=== PATIENT | female | born 2000 | race African-American/Black ===

== ENCOUNTER 2018-02-03 14:06 | Emergency (ER) | payer SELFPAY ==
[2018-02-03] MEDS ORDERED: NORMAL SALINE 1000 ML 1,000 ML IV ONE ×2 (14:59→17:11)
--- NOTE | 2018-02-03 14:59 | ER Document Report ---
ED Medical Screen (RME) - General Chief Complaint: Nausea Stated Complaint: NAUSEA Time Seen by Provider: 02/03/18 14:53 Mode of Arrival: Ambulatory Information source: Patient Notes: 17-year-old female 0, presents to the emergency room with nausea, decreased p.o. intake, weakness in the setting of vaginal bleeding for the past 13 days. The patient is not currently followed by primary care doctor, she is new to the area (from [place]). She is on no medicines and has no allergies. TRAVEL OUTSIDE OF THE [place] IN LAST 30 DAYS: No - Related Data Allergies/Adverse Reactions: No Known Allergies Allergy (Verified 02/03/18 14:07) Past Medical History - Social History Chew tobacco use (# tins/day): No Frequency of alcohol use: None Drug Abuse: None Renal/ Medical History: Denies: Hx Peritoneal Dialysis Physical Exam - Vital signs Vitals: Temp Pulse Resp BP Pulse Ox 98.1 F 99 H 20 123/72 99 02/03/18 14:17 02/03/18 14:17 02/03/18 14:17 02/03/18 14:17 02/03/18 14:17 Course - Vital Signs Vital signs: Temp Pulse Resp BP Pulse Ox 98.1 F 99 H 20 123/72 99 02/03/18 14:17 02/03/18 14:17 02/03/18 14:17 02/03/18 14:17 02/03/18 14:17
[2018-02-03 15:34] LABS: ABSOLUTE LYMPHOCYTES (AUTO) 1.1 10^3/uL (0.5-4.7); ABSOLUTE MONOCYTES (AUTO) 0.2 10^3/uL (0.1-1.4); ABSOLUTE NEUT (AUTO) 5.2 10^3/uL (1.7-8.2); BASOPHILS % (AUTO) 0.4 % (0-2); EOSINOPHILS % (AUTO) 0.2 % (0-6); HEMOGLOBIN 11.5 g/dL (12.0-15.5); LYMPHOCYTES % (AUTO) 17.1 % (13-45); MEAN CORPUSCULAR HEMOGLOBIN 24.5 pg (27.0-33.4); MEAN CORPUSCULAR HGB CONC 32.1 g/dL (32.0-36.0); MEAN CORPUSCULAR VOLUME 76 fl (80-97); MONOCYTES % (AUTO) 3.5 % (3-13); PLATELET COUNT 206 10^3/uL (150-450); RED BLOOD COUNT 4.71 10^6/uL (3.72-5.28); RED CELL DISTRIBUTION WIDTH 15.1 % (11.5-14.0); SEGMENTED NEUTROPHILS % (AUTO) 78.8 % (42-78); TOTAL CELLS COUNTED % (AUTO) 100 %; WHITE BLOOD COUNT 6.6 10^3/uL (4.0-10.5)
[2018-02-03 15:54] LABS: ALANINE AMINOTRANSFERASE 13 U/L (5-35); ALKALINE PHOSPHATASE 64 U/L (50-135); ANION GAP 7 (5-19); ASPARTATE AMINO TRANSFERASE 22 U/L (5-30); BILIRUBIN,DIRECT 0.2 mg/dL (0.0-0.4); BILIRUBIN,TOTAL 0.5 mg/dL (0.2-1.3); BLOOD UREA NITROGEN 12 mg/dL (7-20); CALCIUM 9.4 mg/dL (8.4-10.2); CARBON DIOXIDE 28 mmol/L (22-30); CHLORIDE 105 mmol/L (98-107); GLUCOSE 139 mg/dL (75-110); POTASSIUM 4.3 mmol/L (3.6-5.0); SODIUM 140.3 mmol/L (137-145); TOTAL PROTEIN 7.9 g/dL (6.3-8.2)
--- NOTE | 2018-02-03 16:44 | ER Document Report ---
ED GI/ - General Chief Complaint: Nausea Stated Complaint: NAUSEA Time Seen by Provider: 02/03/18 14:53 Mode of Arrival: Ambulatory Notes: Patient is an otherwise healthy 17-year-old female who presents with chief complaint of nausea without vomiting. Patient also is concerned because her period has lasted 19 days it is usually normal. Patient has no other complaints today. Patient has no past medical history or surgical history. TRAVEL OUTSIDE OF THE [place] IN LAST 30 DAYS: No - Related Data Allergies/Adverse Reactions: No Known Allergies Allergy (Verified 02/03/18 14:07) Past Medical History - General Information source: Patient - Social History Smoking Status: Current Every Day Smoker Chew tobacco use (# tins/day): No Frequency of alcohol use: None Drug Abuse: None Family History: Reviewed & Not Pertinent Patient has suicidal ideation: No Patient has homicidal ideation: No - Medical History Medical History: Negative Renal/ Medical History: Denies: Hx Peritoneal Dialysis Surgical Hx: Negative Review of Systems - Review of Systems Gastrointestinal: Nausea Female Genitourinary: Vaginal bleeding Physical Exam - Vital signs Vitals: Temp Pulse Resp BP Pulse Ox 98.1 F 99 H 20 123/72 99 02/03/18 14:17 02/03/18 14:17 02/03/18 14:17 02/03/18 14:17 02/03/18 14:17 - Notes Notes: PHYSICAL EXAMINATION: GENERAL: Well-appearing, well-nourished and in no acute distress. HEAD: Atraumatic, normocephalic. EYES: Pupils equal round and reactive to light, extraocular movements intact, conjunctiva are normal. ENT: Nares patent, oropharynx clear without exudates. Moist mucous membranes. NECK: Normal range of motion, supple without lymphadenopathy LUNGS: Breath sounds clear to auscultation bilaterally and equal. No wheezes rales or rhonchi. HEART: Regular rate and rhythm without murmurs ABDOMEN: Soft, nontender, nondistended abdomen. No guarding, no rebound. No masses appreciated. Female : No CVA tenderness. Musculoskeletal: Normal range of motion, no pitting or edema. No cyanosis. NEUROLOGICAL: Cranial nerves grossly intact. Normal speech, normal gait. Normal sensory, motor exams PSYCH: Normal mood, normal affect. SKIN: Warm, Dry, normal turgor, no rashes or lesions noted. Course - Re-evaluation Re-evalutation: Hemoglobin and hematocrit are within normal limits. Patient reports she is soaking through 1 pad every 4-6 hours. Patient will be given prescription antiemetics and will be discharged home in stable condition as patient's vital signs are stable and patient has not vomited while in the emergency department for the last several hours. - Vital Signs Vital signs: Temp Pulse Resp BP Pulse Ox 98.1 F 75 16 116/65 99 02/03/18 14:17 02/03/18 18:09 02/03/18 18:09 02/03/18 18:09 02/03/18 18:09 - Laboratory Result Diagrams: 02/03/18 15:18 02/03/18 15:18 Laboratory results interpreted by me: 02/03/18 02/03/18 02/03/18 15:18 15:18 16:59 Hgb 11.5 L MCV 76 L MCH 24.5 L RDW 15.1 H Seg Neutrophils % 78.8 H Glucose 139 H Urine Blood LARGE H Urine Urobilinogen 2.0 H Discharge - Discharge Clinical Impression: Nausea, Vaginal bleeding Condition: Stable Disposition: HOME, SELF-CARE Additional Instructions: NORMAL EXAM AND WORKUP: At this time, your examination and workup show no significant abnormality. No significant abnormal physical findings were noted. All laboratory studies that were ordered show no significant abnormality. Although your examination and all studies that were ordered showed no significant abnormal finding, there are no examinations and no studies that are 100% accurate. There is always the possibility that some abnormality could exist and not be detected with physical examination or within the limits and capabilities of laboratory and other studies. You should return or follow up as you were instructed on your visit today for further evaluation if your symptoms do not resolve. Vaginal Bleeding You are having an episode of abnormal bleeding. Causes of abnormal vaginal bleeding can include miscarriage or tubal , tumors such as cancer or benign fibroids, medication effects, or hormone imbalance. Testing can eliminate unsuspected , tumors, or infection as a cause. "Dysfunctional uterine bleeding" is due to hormone imbalance, and is especially common at times when the normal cycle is disturbed -- whether by recent , use of control pills or hormones, or impending menopause. If the bleeding is innocent, most commonly a short course of hormones is given to restore the uterus to normal. Sometimes, the normal menstrual cycle corrects itself naturally. Sometimes , brief hormone therapy, or even a D&C is required. Your physician will advise you. Treatment for anemia may be required if bleeding is severe. You should rest and avoid intercourse until the bleeding is controlled. Call the doctor or return for re-examination if you feel faint, have increasing pain, or have a major increase in the amount of bleeding. Please take the Zofran as needed for nausea. Your workup today was completely negative. Please follow-up with your HOME COORDINATOR if you continue to have vaginal bleeding. Return to the emergency department if you develop vaginal bleeding anywhere soaking through more than 1 pad per day. Prescriptions: Ondansetron [Zofran Odt 4 mg Tablet] 1 - 2 tab PO Q4H PRN #15 tab.rapdis PRN Reason: For Nausea/Vomiting
[2018-02-03 17:11] LABS: APPEARANCE,URINE SLIGHTLY-CLOUDY; BILIRUBIN,URINE NEGATIVE (NEGATIVE); COLOR,URINE YELLOW; GLUCOSE, URINE NEGATIVE (NEGATIVE); KETONES,URINE NEGATIVE (NEGATIVE); LEUKOCYTE ESTERASE,URINE NEGATIVE (NEGATIVE); NITRITE,URINE NEGATIVE (NEGATIVE); PROTEIN,URINE NEGATIVE (NEGATIVE); URINE SPECIFIC GRAVITY 1.025
[2018-02-03] MEDS ORDERED: ONDANSETRON HCL INJ/PF 4 MG/2 ML SDV IV ONE (17:11)
[2018-02-03 18:11] VITALS: BP 116/65
== END 2018-02-03 18:12 | disposition home or self-care (01) ==
LOC: ER 14:06
DX: R11.0 Nausea (principal); N89.8 Other specified noninflammatory disorders of vagina; F17.200 Nicotine dependence, unspecified, uncomplicated
CPT/HCPCS: 99283; 96361; 96374; 36415; 87086; 84702; 85025; 80053; 81001; J2405

== ENCOUNTER 2018-04-23 10:31 | Emergency (ER) | payer SELFPAY ==
[2018-04-23 12:19] LABS: ABSOLUTE LYMPHOCYTES (AUTO) 1.3 10^3/uL (0.5-4.7); ABSOLUTE MONOCYTES (AUTO) 0.2 10^3/uL (0.1-1.4); ABSOLUTE NEUT (AUTO) 2.6 10^3/uL (1.7-8.2); BASOPHILS % (AUTO) 0.5 % (0-2); HEMATOCRIT 31.1 % (36.0-47.0); HEMOGLOBIN 9.9 g/dL (12.0-15.5); LYMPHOCYTES % (AUTO) 31.1 % (13-45); MEAN CORPUSCULAR HEMOGLOBIN 23.7 pg (27.0-33.4); MEAN CORPUSCULAR HGB CONC 31.9 g/dL (32.0-36.0); MEAN CORPUSCULAR VOLUME 75 fl (80-97); PLATELET COUNT 183 10^3/uL (150-450); RED BLOOD COUNT 4.17 10^6/uL (3.72-5.28); RED CELL DISTRIBUTION WIDTH 14.9 % (11.5-14.0); SEGMENTED NEUTROPHILS % (AUTO) 63.4 % (42-78); TOTAL CELLS COUNTED % (AUTO) 100 %; WHITE BLOOD COUNT 4.1 10^3/uL (4.0-10.5)
[2018-04-23 12:29] LABS: APPEARANCE,URINE CLOUDY; BILIRUBIN,URINE NEGATIVE (NEGATIVE); COLOR,URINE YELLOW; GLUCOSE, URINE NEGATIVE (NEGATIVE); KETONES,URINE NEGATIVE (NEGATIVE); LEUKOCYTE ESTERASE,URINE NEGATIVE (NEGATIVE); NITRITE,URINE NEGATIVE (NEGATIVE); PROTEIN,URINE 100 mg/dL (NEGATIVE); URINE SPECIFIC GRAVITY 1.028; UROBILINOGEN,URINE NEGATIVE mg/dL (<2.0)
[2018-04-23 12:33] LABS: ALANINE AMINOTRANSFERASE 19 U/L (5-35); ALBUMIN 3.8 g/dL (3.7-5.6); ALKALINE PHOSPHATASE 65 U/L (50-135); ANION GAP 10 (5-19); ASPARTATE AMINO TRANSFERASE 16 U/L (5-30); BILIRUBIN,DIRECT 0.4 mg/dL (0.0-0.4); BILIRUBIN,TOTAL 0.7 mg/dL (0.2-1.3); BLOOD UREA NITROGEN 11 mg/dL (7-20); CALCIUM 9.2 mg/dL (8.4-10.2); CARBON DIOXIDE 28 mmol/L (22-30); CHLORIDE 104 mmol/L (98-107); GLUCOSE 131 mg/dL (75-110); LIPASE 52.1 U/L (23-300); POTASSIUM 4.2 mmol/L (3.6-5.0); SODIUM 142.2 mmol/L (137-145); TOTAL PROTEIN 7.1 g/dL (6.3-8.2)
--- NOTE | 2018-04-23 13:18 | RADIOLOGY REPORT (SQ) ---
EXAM DESCRIPTION: U/S NON OB PEL W/DOPPLER COMPLETED DATE/TIME: 04/23/2018 1:02 pm REASON FOR STUDY: vaginal bleedings COMPARISON: None. TECHNIQUE: Dynamic and static grayscale images acquired of the pelvis via transabdominal and transva ginal approach and recorded on PACS. Additional selected color Doppler and spectral images recorded. LIMITATIONS: None. FINDINGS: UTERUS: Contour normal. No mass. ENDOMETRIAL STRIPE: Heterogeneous. Thickened at 1.8 cm. CERVIX: No nabothian cysts. RIGHT OVARY AND DOPPLER: Normal size. No worrisome masses. Normal arterial vascular flow without evid ence for torsion. LEFT OVARY AND DOPPLER: 2.9 cm cyst. Positive blood flow. FREE FLUID: None noted. OTHER: No other significant finding. MEASUREMENTS: UTERUS: 8.4 cm ENDOMETRIAL STRIPE: 1.8 cm RIGHT OVARY: 1.1 cm LEFT OVARY: 3.4 cm IMPRESSION: Heterogeneous thickened endometrium. 3 cm left ovarian cyst. COMMENT: Followup of asymptomatic benign ovarian cysts detected by ultrasound in PREMENOPAUSAL job ents Simple cyst: *? 5 cm: no followup *Note: If cyst is clinically symptomatic or otherwise concerning, other followup may be warranted. Based on recommendations of the Society for Radiologists in Ultrasound Consensus Conference Statement 2010 on management of asymptomatic ovarian and other adnexal cysts imaged at ultrasound. TECHNICAL DOCUMENTATION: JOB ID: [id number] [employer]- All Rights Reserved Rev-09/30 Reading location - IP/workstation name: [email or web address]
--- NOTE | 2018-04-23 13:36 | ER Document Report ---
ED General - General Chief Complaint: Vaginal Bleeding Stated Complaint: VAGINAL PAIN Time Seen by Provider: 04/23/18 11:32 TRAVEL OUTSIDE OF THE [place] IN LAST 30 DAYS: No - HPI Patient complains to provider of: Vaginal bleeding Notes: Patient coming in for evaluation of vaginal bleeding. Patient states is been ongoing since January. Patient states she has follow-up with [facility] GENETIC[facility] however has not followed up since that time and since coming to visit us here in the ER. Patient states bleeding continues therefore came to ER for further evaluation. Denies any weakness dizziness patient states she is going through approximately 1-2 pads a day. Patient denies any trauma unsure about her status at this time. Patient otherwise resting comfortably upon my evaluation. - Related Data Allergies/Adverse Reactions: No Known Allergies Allergy (Verified 02/03/18 14:07) Past Medical History - Social History Smoking Status: Never Smoker Frequency of alcohol use: None Drug Abuse: None Family History: Reviewed & Not Pertinent Patient has suicidal ideation: No Patient has homicidal ideation: No Renal/ Medical History: Denies: Hx Peritoneal Dialysis Review of Systems - Review of Systems Constitutional: No symptoms reported EENT: No symptoms reported Cardiovascular: No symptoms reported Respiratory: No symptoms reported Gastrointestinal: No symptoms reported Genitourinary: No symptoms reported Female Genitourinary: Vaginal bleeding Musculoskeletal: No symptoms reported Skin: No symptoms reported Hematologic/Lymphatic: No symptoms reported Neurological/Psychological: No symptoms reported -: Yes All other systems reviewed and negative Physical Exam - Vital signs Vitals: Temp Pulse Resp BP Pulse Ox 99.1 F 103 H 20 125/75 98 04/23/18 10:38 04/23/18 10:38 04/23/18 10:38 04/23/18 10:38 04/23/18 10:38 Interpretation: Normal - General General appearance: Appears well, Alert - HEENT Head: Normocephalic, Atraumatic Eyes: Normal Pupils: PERRL - Respiratory Respiratory status: No respiratory distress Chest status: Nontender Breath sounds: Normal Chest palpation: Normal - Cardiovascular Rhythm: Regular Heart sounds: Normal auscultation Murmur: No - Abdominal Inspection: Normal Distension: No distension Bowel sounds: Normal Tenderness: Nontender Organomegaly: No organomegaly - Back Back: Normal, Nontender - Extremities General upper extremity: Normal inspection, Nontender, Normal color, Normal ROM , Normal temperature General lower extremity: Normal inspection, Nontender, Normal color, Normal ROM , Normal temperature, Normal weight bearing. No: Yung's sign - Neurological Neuro grossly intact: Yes Cognition: Normal Orientation: AAOx4 Marilynn Coma Scale Eye Opening: Spontaneous Secor Coma Scale Verbal: Oriented Marilynn Coma Scale Motor: Obeys Commands Marilynn Coma Scale Total: 15 Speech: Normal Motor strength normal: LUE, RUE, LLE, RLE Sensory: Normal - Psychological Associated symptoms: Normal affect, Normal mood - Skin Skin Temperature: Warm Skin Moisture: Dry Skin Color: Normal Course - Re-evaluation Re-evalutation: 04/23/18 13:32 Ultrasound shows thickened endometrium. Laboratory studies showed anemia at this time 9.9 which is decreased and the patient hemoglobin from January 24 0.5. We will start the patient on iron supplements. CELL GENETICIST information was given to the patient. Patient stated understanding of the need for follow-up. Patient will be discharged home. - Vital Signs Vital signs: Temp Pulse Resp BP Pulse Ox 99.1 F 103 H 20 125/75 98 04/23/18 10:38 04/23/18 10:38 04/23/18 10:38 04/23/18 10:38 04/23/18 10:38 - Laboratory Result Diagrams: 04/23/18 12:00 04/23/18 12:00 Laboratory results interpreted by me: 04/23/18 04/23/18 04/23/18 11:45 12:00 12:00 Hgb 9.9 L Hct 31.1 L MCV 75 L MCH 23.7 L MCHC 31.9 L RDW 14.9 H Glucose 131 H Urine Protein 100 H Urine Blood LARGE H Discharge - Discharge Clinical Impression: Dysfunctional uterine bleeding Anemia Qualifiers: Anemia type: unspecified type Qualified Code(s): D64.9 - Anemia, unspecified Condition: Good Disposition: HOME, SELF-CARE Instructions: Dysfunctional Uterine Bleeding ([facility]), Anemia ([facility]), Ob-Contemporary Or [employer] Additional Instructions: Laboratory studies today show that you are becoming slightly anemic. I would recommend he be discharged on iron supplements at this time. Please be aware that this will change the color of her stools. Also recommend that she follow- up with [facility] GENETIC[facility]. Your ultrasound does not show any signs of fibroids with a showed signs of a thickened endometrium. Further evaluation will need to be performed by a CELL GENETICIST Prescriptions: 118/Iron/Folate 6/Dha [[facility] Softgel] 1 each PO DAILY #30 capsule Referrals: CROW KAPADIA MD [ACTIVE STAFF] - Follow up in 3-5 days
[2018-04-23 13:51] VITALS: BP 130/68
== END 2018-04-23 14:00 | disposition home or self-care (01) ==
LOC: ER 10:31
DX: N93.8 Other specified abnormal uterine and vaginal bleeding (principal); D64.9 Anemia, unspecified
CPT/HCPCS: 76856; 80053; 81001; 81025; 83690; 85025; 93976; 99284

== ENCOUNTER 2018-05-27 10:54 | Emergency (ER) | payer SELFPAY ==
[2018-05-27] MEDS ORDERED: ONDANSETRON 4 MG TAB.RAPDIS PO ONE (11:24)
--- NOTE | 2018-05-27 11:26 | ER Document Report ---
ED Medical Screen (RME) - General Chief Complaint: Vomiting Stated Complaint: THROWING UP Time Seen by Provider: 05/27/18 11:21 Notes: 17-year-old female patient whose LMP is 05/05/2018 who states there is a possibility she could be . She reports waking up this morning about 07 100 with nausea and vomiting, continues to remain nauseous. She did have some diarrhea this morning. She reports a similar episode that occurred once about 5 AM a week ago. There is no pain or fever associated with this. I have greeted and performed a rapid initial assessment of this patient. A comprehensive ED assessment and evaluation of the patient, analysis of test results and completion of the medical decision making process will be conducted by additional ED providers. TRAVEL OUTSIDE OF THE [place] IN LAST 30 DAYS: No - Related Data Allergies/Adverse Reactions: No Known Allergies Allergy (Verified 05/27/18 10:56) Past Medical History - Social History Chew tobacco use (# tins/day): No Frequency of alcohol use: None Drug Abuse: None Renal/ Medical History: Denies: Hx Peritoneal Dialysis Physical Exam - Vital signs Vitals: Temp Pulse Resp BP Pulse Ox 98.5 F 81 18 117/77 99 05/27/18 11:00 05/27/18 11:00 05/27/18 11:00 05/27/18 11:00 05/27/18 11:00 Course - Vital Signs Vital signs: Temp Pulse Resp BP Pulse Ox 98.5 F 81 18 117/77 99 05/27/18 11:00 05/27/18 11:00 05/27/18 11:00 05/27/18 11:00 05/27/18 11:00
[2018-05-27] MEDS ORDERED: KETOROLAC TROMETHAMINE 60 MG/2 ML SDV IM ONE (12:06)
--- NOTE | 2018-05-27 12:09 | ER Document Report ---
ED GI/ - General Chief Complaint: Vomiting Stated Complaint: THROWING UP Time Seen by Provider: 05/27/18 11:21 Mode of Arrival: Ambulatory Information source: Patient Notes: Chief complaint: abdominal pain: History of complain:( obtained from----patient) 17 years old female presents today with abdominal pain nausea and vomiting since this morning with 4 loose bowel movement which is described as brown in color. Denies any fever chills or other constitutional symptoms denies any dysuria frequency urgency Onset: As above Duration: Since this morning Severity: Moderate Quality: Crampy Context: Unknown Exacerbating factor and relieving factors: None REVIEW OF SYSTEMS: CONSTITUTIONAL : Denies fever, chills, or sweats. Denies recent illness. EENT: Denies eye, ear, throat, or mouth pain or symptoms. Denies nasal or sinus congestion or discharge. Denies throat, tongue, or mouth swelling or difficulty swallowing. CARDIOVASCULAR: Denies chest pain. Denies palpitations or racing or irregular heart beat. Denies ankle edema. RESPIRATORY: Denies cough, cold, or chest congestion. Denies shortness of breath, difficulty breathing, or wheezing. GASTROINTESTINAL: As per history of complain denies constipation. GENITOURINARY: Denies difficulty urinating, painful urination, burning, frequency, blood in urine, or discharge. FEMALE GENITOURINARY: Denies vaginal bleeding, heavy or abnormal periods, irregular periods. Denies vaginal discharge or odor. MUSCULOSKELETAL: Denies back or neck pain or stiffness. Denies joint pain or swelling. SKIN: Denies rash, lesions or sores. HEMATOLOGIC : Denies easy bruising or bleeding. LYMPHATIC: Denies swollen, enlarged glands. NEUROLOGICAL: Denies confusion or altered mental status. Denies passing out or loss of consciousness. Denies dizziness or lightheadedness. Denies headache. Denies weakness or paralysis or loss of use of either side. Denies problems with gait or speech. Denies sensory loss, numbness, or tingling. Denies seizures. PSYCHIATRIC: Denies anxiety or stress. Denies depression, suicidal ideation, or homicidal ideation. ALL OTHER SYSTEMS REVIEWED AND NEGATIVE. PHYSICAL EXAMINATION: GENERAL: Well-appearing, well-nourished and in no acute distress. Morbid obesity HEAD: Atraumatic, normocephalic. EYES: Pupils equal round and reactive to light, extraocular movements intact, conjunctiva are normal. ENT: Nares patent, oropharynx clear without exudates. Moist mucous membranes. NECK: Normal range of motion, supple without lymphadenopathy LUNGS: Breath sounds clear to auscultation bilaterally and equal. No wheezes rales or rhonchi. HEART: Regular rate and rhythm without murmurs ABDOMEN: Soft, nontender, nondistended abdomen. No guarding, no rebound. No masses appreciated. Female : deferred Musculoskeletal: Normal range of motion, no pitting or edema. No cyanosis. NEUROLOGICAL: Cranial nerves grossly intact. Normal speech, normal gait. Normal sensory, motor exams PSYCH: Normal mood, normal affect. SKIN: Warm, Dry, normal turgor, no rashes or lesions noted. Dictation was performed using [employer] voice recognition software TRAVEL OUTSIDE OF THE [place] IN LAST 30 DAYS: No - HPI Notes: 05/27/18 12:08 Dictated - Related Data Allergies/Adverse Reactions: No Known Allergies Allergy (Verified 05/27/18 11:25) Past Medical History - Social History Smoking Status: Never Smoker Chew tobacco use (# tins/day): No Frequency of alcohol use: None Drug Abuse: None Lives with: Family Family History: Reviewed & Not Pertinent Patient has suicidal ideation: No Patient has homicidal ideation: No Renal/ Medical History: Denies: Hx Peritoneal Dialysis Review of Systems - Review of Systems Notes: Dictated Physical Exam - Vital signs Vitals: Temp Pulse Resp BP Pulse Ox 98.5 F 81 18 117/77 99 05/27/18 11:00 05/27/18 11:00 05/27/18 11:00 05/27/18 11:00 05/27/18 11:00 - Notes Notes: Dictated Course - Vital Signs Vital signs: Temp Pulse Resp BP Pulse Ox 98.5 F 81 18 117/77 99 05/27/18 11:00 05/27/18 11:00 05/27/18 11:00 05/27/18 11:00 05/27/18 11:00 - Laboratory Result Diagrams: 05/27/18 11:35 05/27/18 11:35 Laboratory results interpreted by me: 05/27/18 11:35 Hgb 10.1 L Hct 32.1 L MCV 71 L MCH 22.4 L MCHC 31.5 L RDW 16.0 H Seg Neutrophils % 82.9 H Monocytes % 2.8 L - Diagnostic Test Radiology reviewed: Image reviewed - Abdominal view shows large amount of retained feces, Reports reviewed - Abdominal x-ray reported by radiologist as unremarkable Discharge - Discharge Clinical Impression: Nausea & vomiting Qualifiers: Vomiting type: unspecified Retained feces Qualifiers: Constipation type: slow transit constipation Qualified Code(s): K59.01 - Slow transit constipation Condition: Fair Instructions: Vomiting ([facility]), Constipation ([facility]) Prescriptions: Ondansetron [Zofran Odt 4 mg Tablet] 1 - 2 tab PO Q4HP PRN #10 tab.rapdis PRN Reason: Ketorolac Tromethamine [Toradol 10 mg Tablet] 10 mg PO Q6HP PRN #14 tablet PRN Reason: Dicyclomine HCl [Bentyl 10 mg Capsule] 1 cap PO TID #30 cap Lactulose [Cephulac Syrup 20 gm/30 ml Udcup] 20 gm PO BID #120 udc
[2018-05-27 12:16] LABS: ABSOLUTE MONOCYTES (AUTO) 0.2 10^3/uL (0.1-1.4); BASOPHILS % (AUTO) 0.4 % (0-2); EOSINOPHILS % (AUTO) 0.1 % (0-6); HEMATOCRIT 32.1 % (36.0-47.0); HEMOGLOBIN 10.1 g/dL (12.0-15.5); LYMPHOCYTES % (AUTO) 13.8 % (13-45); MEAN CORPUSCULAR HEMOGLOBIN 22.4 pg (27.0-33.4); MEAN CORPUSCULAR HGB CONC 31.5 g/dL (32.0-36.0); MEAN CORPUSCULAR VOLUME 71 fl (80-97); MONOCYTES % (AUTO) 2.8 % (3-13); PLATELET COUNT 242 10^3/uL (150-450); RED BLOOD COUNT 4.52 10^6/uL (3.72-5.28); SEGMENTED NEUTROPHILS % (AUTO) 82.9 % (42-78); TOTAL CELLS COUNTED % (AUTO) 100 %; WHITE BLOOD COUNT 7.3 10^3/uL (4.0-10.5)
[2018-05-27 12:20] LABS: APPEARANCE,URINE CLEAR; BILIRUBIN,URINE NEGATIVE (NEGATIVE); COLOR,URINE YELLOW; GLUCOSE, URINE NEGATIVE (NEGATIVE); KETONES,URINE NEGATIVE (NEGATIVE); LEUKOCYTE ESTERASE,URINE NEGATIVE (NEGATIVE); NITRITE,URINE NEGATIVE (NEGATIVE); PROTEIN,URINE NEGATIVE (NEGATIVE); URINE SPECIFIC GRAVITY 1.019; UROBILINOGEN,URINE NEGATIVE mg/dL (<2.0)
[2018-05-27 12:32] LABS: ALANINE AMINOTRANSFERASE 20 U/L (5-35); ALBUMIN 4.5 g/dL (3.7-5.6); ALKALINE PHOSPHATASE 79 U/L (50-135); ANION GAP 10 (5-19); ASPARTATE AMINO TRANSFERASE 20 U/L (5-30); BILIRUBIN,DIRECT 0.1 mg/dL (0.0-0.4); BILIRUBIN,TOTAL 0.3 mg/dL (0.2-1.3); BLOOD UREA NITROGEN 12 mg/dL (7-20); CALCIUM 9.6 mg/dL (8.4-10.2); CARBON DIOXIDE 25 mmol/L (22-30); CHLORIDE 106 mmol/L (98-107); GLUCOSE 108 mg/dL (75-110); POTASSIUM 4.9 mmol/L (3.6-5.0); SODIUM 140.7 mmol/L (137-145); TOTAL PROTEIN 7.8 g/dL (6.3-8.2)
--- NOTE | 2018-05-27 12:54 | RADIOLOGY REPORT (SQ) ---
EXAM DESCRIPTION: KUB/ABDOMEN (SINGLE VIEW) COMPLETED DATE/TIME: 05/27/2018 12:46 pm REASON FOR STUDY: Abdominal pain COMPARISON: None. NUMBER OF VIEWS: One view. TECHNIQUE: Supine radiographic image of the abdomen acquired. LIMITATIONS: None. FINDINGS: BOWEL GAS PATTERN: Normal bowel gas pattern. No dilated loops. CALCIFICATIONS: No suspicious calcifications. SOFT TISSUES: No gross mass or suggestion of organomegaly. HARDWARE: None in the abdomen. BONES: No acute fracture. No worrisome bone lesions. OTHER: No other significant finding. IMPRESSION: NO RADIOGRAPHIC EVIDENCE FOR ACUTE ABDOMINAL DISEASE. TECHNICAL DOCUMENTATION: JOB ID: [id number] [employer]- All Rights Reserved Reading location - IP/workstation name: [email or web address]
[2018-05-27 14:27] VITALS: BP 122/78
== END 2018-05-27 14:15 | disposition home or self-care (01) ==
LOC: ER 10:54
DX: K59.01 Slow transit constipation (principal); R11.2 Nausea with vomiting, unspecified; R10.9 Unspecified abdominal pain; R19.7 Diarrhea, unspecified
CPT/HCPCS: 99284; 96372; 36415; 84703; 85025; 80053; 81001; 74018; J1885; S0119

== ENCOUNTER 2018-08-08 17:02 | Emergency (ER) | payer MEDICAID ==
--- NOTE | 2018-08-08 19:05 | ER Document Report ---
ED General - General Chief Complaint: Vaginal Bleeding Stated Complaint: VAGINAL SPOTTING Time Seen by Provider: 08/08/18 17:58 Primary Care Provider: [facility] [Provider Group] - Follow up tomorrow Notes: 18-year-old female LMP either 05/01/2018 or 05/07/2018 presents to the emergency department for spotting and cramping times 24 hours. She states that it is in her lower abdomen and when she wiped after urinating she noticed some blood on the toilet paper. She did not see it on her underwear. She did not see any clots. She describes it as feeling acute cramping/constipation combination type pain. She denies any fevers or chills, shortness of breath or chest pain, does have morning nausea but none currently, no vomiting, no diarrhea. Denies urinary symptoms. She has no other complaints. She did have a transvaginal ultrasound performed here about 3 weeks ago that showed an intrauterine . She does have obstetrics care at [facility]. TRAVEL OUTSIDE OF THE [place] IN LAST 30 DAYS: No - Related Data Allergies/Adverse Reactions: No Known Allergies Allergy (Verified 05/27/18 11:25) Past Medical History - Social History Smoking Status: Never Smoker Family History: Reviewed & Not Pertinent Renal/ Medical History: Denies: Hx Peritoneal Dialysis Review of Systems - Review of Systems Constitutional: See HPI EENT: No symptoms reported Cardiovascular: See HPI Respiratory: See HPI Gastrointestinal: See HPI Genitourinary: See HPI Female Genitourinary: See HPI Musculoskeletal: No symptoms reported Skin: No symptoms reported Hematologic/Lymphatic: No symptoms reported Neurological/Psychological: No symptoms reported Physical Exam - Vital signs Vitals: Temp Pulse Resp BP Pulse Ox 98.2 F 89 18 148/75 H 99 08/08/18 17:07 08/08/18 17:07 08/08/18 17:07 08/08/18 17:07 08/08/18 17:07 - Notes Notes: PHYSICAL EXAMINATION: Reviewed vital signs and charting by RN GENERAL: Alert, interacts well. No acute distress. HEAD: Normocephalic, atraumatic. LUNGS: Clear to auscultation bilaterally, no wheezes, rales, or rhonchi. No respiratory distress. HEART: Regular rate and rhythm. No murmur ABDOMEN: soft, non-tender. Non-distended. Bowel sounds present in all 4 quadrants. no McBurney's point tenderness, no Keenan sign. EXTREMITIES: Moves all 4 extremities spontaneously. No edema, No cyanosis. PSYCH: Normal affect, normal mood. SKIN: Warm, dry, normal turgor. No rashes or lesions noted. Course - Re-evaluation Re-evalutation: 08/08/18 19:05 Overall well-appearing, basic blood work, urinalysis, transvaginal ultrasound ordered. Has a follow-up appointment on 08/15/2018. Pending workup will make recommendation for follow-up. 08/08/18 21:38 Ultrasound done and it shows a intrauterine , no heart tones seen. All lab work grossly normal. There is a small subchorionic bleed. I discussed this with patient and instructing her to follow-up tomorrow with [facility]. She is stable for discharge. Vital signs are stable - Vital Signs Vital signs: Temp Pulse Resp BP Pulse Ox 98.2 F 89 18 148/75 H 99 08/08/18 17:07 08/08/18 17:07 08/08/18 17:07 08/08/18 17:07 08/08/18 17:07 - Laboratory Result Diagrams: 08/08/18 19:05 08/08/18 19:05 Laboratory results interpreted by me: 08/08/18 08/08/18 08/08/18 19:05 19:05 19:07 Hgb 10.8 L Hct 33.6 L MCV 70 L MCH 22.4 L RDW 19.9 H Beta HCG, Quant 4136.70 H Urine Protein 30 H Urine Blood LARGE H Urine Urobilinogen 2.0 H Ur Leukocyte Esterase TRACE H Discharge - Discharge Clinical Impression: Vaginal bleeding affecting early Condition: Good Disposition: HOME, SELF-CARE Additional Instructions: Your ultrasound today shows a gestational sac in the uterus. They did not see a heart tone but again it is possible it could be too early. Please follow- up with [facility] tomorrow. Please return to the emergency department if you develop severe abdominal pain, bleeding that goes through more than 2 pads for more than 2 hours, pass out, or have any other symptoms that are concerning to you. Referrals: [facility] [Provider Group] - Follow up tomorrow
[2018-08-08 19:21] LABS: ABSOLUTE MONOCYTES (AUTO) 0.4 10^3/uL (0.1-1.4); ABSOLUTE NEUT (AUTO) 4.5 10^3/uL (1.7-8.2); BASOPHILS % (AUTO) 0.3 % (0-2); EOSINOPHILS % (AUTO) 0.4 % (0-6); HEMATOCRIT 33.6 % (36.0-47.0); HEMOGLOBIN 10.8 g/dL (12.0-15.5); LYMPHOCYTES % (AUTO) 28.7 % (13-45); MEAN CORPUSCULAR HEMOGLOBIN 22.4 pg (27.0-33.4); MEAN CORPUSCULAR VOLUME 70 fl (80-97); MONOCYTES % (AUTO) 5.3 % (3-13); PLATELET COUNT 236 10^3/uL (150-450); RED BLOOD COUNT 4.79 10^6/uL (3.72-5.28); RED CELL DISTRIBUTION WIDTH 19.9 % (11.5-14.0); SEGMENTED NEUTROPHILS % (AUTO) 65.3 % (42-78); TOTAL CELLS COUNTED % (AUTO) 100 %; WHITE BLOOD COUNT 6.8 10^3/uL (4.0-10.5)
[2018-08-08 19:25] LABS: APPEARANCE,URINE SLIGHTLY-CLOUDY; BILIRUBIN,URINE NEGATIVE (NEGATIVE); COLOR,URINE YELLOW; GLUCOSE, URINE NEGATIVE (NEGATIVE); KETONES,URINE NEGATIVE (NEGATIVE); LEUKOCYTE ESTERASE,URINE TRACE (NEGATIVE); NITRITE,URINE NEGATIVE (NEGATIVE); PROTEIN,URINE 30 mg/dL (NEGATIVE); URINE SPECIFIC GRAVITY 1.025
[2018-08-08 19:42] LABS: ALANINE AMINOTRANSFERASE 17 U/L (9-52); ALKALINE PHOSPHATASE 63 U/L (38-126); ANION GAP 10 (5-19); ASPARTATE AMINO TRANSFERASE 16 U/L (14-36); BILIRUBIN,DIRECT 0.2 mg/dL (0.0-0.4); BILIRUBIN,TOTAL 0.5 mg/dL (0.2-1.3); BLOOD UREA NITROGEN 12 mg/dL (7-20); CALCIUM 9.6 mg/dL (8.4-10.2); CARBON DIOXIDE 24 mmol/L (22-30); CHLORIDE 103 mmol/L (98-107); GLUCOSE 101 mg/dL (75-110); POTASSIUM 4.2 mmol/L (3.6-5.0); SODIUM 137.1 mmol/L (137-145); TOTAL PROTEIN 7.5 g/dL (6.3-8.2)
--- NOTE | 2018-08-08 21:22 | RADIOLOGY REPORT (SQ) ---
US PELVIS EXAM DATE: 08/08/2018 19:01 HISTORY: Early . Pelvic pain. COMPARISON: 07/13/2018 TECHNIQUE: Grayscale, color Doppler, and spectral Doppler ultrasound images of the pelvis were obtained. FINDINGS: There is an intrauterine gestational sac with a pole with crown-rump length of 1.2 cm corresponding to 7 weeks 2 days of . No yolk sac is seen. No heart rate is detected at this time. The right ovary is not seen. The left ovary measures 3 cm and contains normal color Doppler blood flow. There is a possible 1.4 cm subchorionic bleed adjacent to the gestational sac. IMPRESSION: Single IUP with gestational age 7 weeks 2 days. No heart rate could be elicited which may represent a live versus demise. Recommend short-term follow-up imaging
[2018-08-08 21:41] VITALS: BP 127/65
== END 2018-08-08 22:03 | disposition home or self-care (01) ==
LOC: ER 17:02
DX: O20.9 Hemorrhage in early pregnancy, unspecified (principal)
CPT/HCPCS: 36415; 76817; 80053; 81001; 84702; 85025; 93976; 99284

== ENCOUNTER 2018-12-24 13:59 | Emergency (ER) | payer MEDICAID ==
[2018-12-24 14:10] VITALS: BP 143/59
[2018-12-24] MEDS ORDERED: LORATADINE 10 MG TABLET PO ONE (14:49)
[2018-12-24] MEDS ORDERED: ACETAMINOPHEN 325 MG TABLET PO ONE (14:49)
--- NOTE | 2018-12-24 14:56 | ER Document Report ---
ED ENT - General Chief Complaint: Nasal Congestion Stated Complaint: BODYACHES Time Seen by Provider: 12/24/18 14:43 Mode of Arrival: Ambulatory Information source: Patient Notes: 18-year-old female presents to ED for complaint of body body aches nasal drainage body aches no fever. She states today is a secondary symptoms. 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 Patient is alert oriented respirations regular and unlabored speaking in full sentences. She states this is her second that she had one miscarriage no live . TRAVEL OUTSIDE OF THE [place] IN LAST 30 DAYS: No - HPI Patient complains to provider of: Nose problem, Other Onset: Yesterday - Cough and cold symptoms Onset/Duration: Gradual Quality of pain: Achy Severity: Mild Pain Level: 1 Location of pain: Sinus Associated symptoms: Congestion, Cough, Runny nose, Sinus drainage, Other - Body aches Similar symptoms previously: Yes Recently seen / treated by doctor: No - Related Data Allergies/Adverse Reactions: No Known Allergies Allergy (Verified 05/27/18 11:25) Past Medical History - General Information source: Patient - Social History Smoking Status: Current Every Day Smoker Cigarette use (# per day): Yes - 2 cigarettes a day Smoking Education Provided: Yes - 4 minutes Frequency of alcohol use: None Drug Abuse: None Lives with: Family Family History: Reviewed & Not Pertinent Patient has suicidal ideation: No Patient has homicidal ideation: No - Past Medical History Cardiac Medical History: Reports: None Pulmonary Medical History: Reports: None EENT Medical History: Reports: None Neurological Medical History: Reports: None Endocrine Medical History: Reports: None Renal/ Medical History: Reports: None Malignancy Medical History: Reports: None GI Medical History: Reports: None Musculoskeletal Medical History: Reports None Skin Medical History: Reports None Psychiatric Medical History: Reports: None Traumatic Medical History: Reports: None Infectious Medical History: Reports: None Surgical Hx: Negative Past Surgical History: Reports: None - Immunizations Immunizations up to date: Yes Review of Systems - Review of Systems Constitutional: Chills, Recent illness EENT: Nose discharge, Sinus discharge Cardiovascular: No symptoms reported Respiratory: No symptoms reported Gastrointestinal: No symptoms reported Genitourinary: No symptoms reported Female Genitourinary: No symptoms reported Musculoskeletal: Muscle pain - Body aches, Muscle stiffness Skin: No symptoms reported Hematologic/Lymphatic: No symptoms reported Neurological/Psychological: No symptoms reported -: Yes All other systems reviewed and negative Physical Exam - Vital signs Vitals: Temp Pulse Resp BP Pulse Ox 98.8 F 89 18 143/59 H 95 12/24/18 14:10 12/24/18 14:10 12/24/18 14:10 12/24/18 14:10 12/24/18 14:10 Interpretation: Normal - General General appearance: Appears well, Alert - HEENT Head: Normocephalic, Atraumatic Eyes: Normal Pupils: PERRL Ears: Normal External canal: Normal Tympanic membrane: Normal Sinus: Normal Nasal: Purulent discharge, Swelling - Or on the right nasal turbinate in the left Mouth/Lips: Normal Pharynx: Post nasal drainage. No: Erythema, Exudate, Peritonsillar abscess, Retropharyngeal abscess, Tonsillar hypertrophy, Potential airway comprom. - Respiratory Respiratory status: No respiratory distress Chest status: Nontender Breath sounds: Normal Chest palpation: Normal - Cardiovascular Rhythm: Regular Heart sounds: Normal auscultation Murmur: No - Abdominal Inspection: Normal Distension: No distension Bowel sounds: Normal Tenderness: Nontender Organomegaly: No organomegaly - Back Back: Normal, Nontender - Extremities General upper extremity: Normal inspection, Nontender, Normal color, Normal ROM, Normal temperature General lower extremity: Normal inspection, Nontender, Normal color, Normal ROM, Normal temperature, Normal weight bearing. No: Yung's sign - Neurological Neuro grossly intact: Yes Cognition: Normal Orientation: AAOx4 [place] Coma Scale Eye Opening: Spontaneous Marilynn Coma Scale Verbal: Oriented [place] Coma Scale Motor: Obeys Commands Marilynn Coma Scale Total: 15 Speech: Normal Motor strength normal: LUE, RUE, LLE, RLE Sensory: Normal - Psychological Associated symptoms: Normal affect, Normal mood - Skin Skin Temperature: Warm Skin Moisture: Dry Skin Color: Normal Course - Re-evaluation Re-evalutation: 12/24/18 14:58 She was given instructions concerning early . After performing a Medical Screening Examination, I estimate there is LOW risk for ACUTE CORONARY SYNDROME, RESPIRATORY FAILURE, SEPSIS OR MENINGITIS, thus I consider the discharge disposition reasonable. I have reevaluated this patient multiple times and no significant life threatening changes are noted. The patient and I have discussed the diagnosis and risks, and we agree with discharging home with close follow-up. We also discussed returning to the Emergency Department immediately if new or worsening symptoms occur. We have discussed the symptoms which are most concerning (e.g., changing or worsening pain, trouble swallowing or breathing, neck stiffness, fever) that necessitate immediate return. - Vital Signs Vital signs: Temp Pulse Resp BP Pulse Ox 98.8 F 89 18 143/59 H 95 12/24/18 14:10 12/24/18 14:10 12/24/18 14:10 12/24/18 14:10 12/24/18 14:10 Discharge - Discharge Clinical Impression: URI (upper respiratory infection) Qualifiers: URI type: unspecified viral URI Qualified Code(s): J06.9 - Acute upper respiratory infection, unspecified Condition: Stable Disposition: HOME, SELF-CARE Instructions: Family Physicians / Practices, [facility] [place] Additional Instructions: UPPER RESPIRATORY ILLNESS: You have a viral infection of the respiratory passages -- a "cold." This common infection causes nasal congestion, drainage, and often sore throat and cough. It is highly contagious. The disease usually lasts about 10 to 14 days. There is no "cure" for the viral infection -- it must run its course. If there is a complication, such as bacterial infection in the nose, sinuses, middle ear, or bronchial tubes, antibiotics may be required. The antibiotics won't affect the virus. Drink plenty of fluids. A humidifier may help. An expectorant medication or decongestant may make you more comfortable. Use acetaminophen or ibuprofen for fever or aches. See the doctor if fever persists over two days, if there is any significant worsening of your symptoms, or if you simply fail to improve as expected. When you are you can take Claritin, Benadryl, or Tylenol. You cannot use other cough and cold medicines as they are not safe in . Salt and soda solution gargles will also help your sore throat. Saline nasal spray will help to reduce the drainage that is going down the back your throat. You can use Tylenol for pain you cannot use ibuprofen while you are . USE OF ACETAMINOPHEN (Tylenol): Acetaminophen may be taken for pain relief or fever control. It's much safer than aspirin, offering a wider range of "safe" dosages. It is safe during . Some brand names are Tylenol, Panadol, Datril, Anacin 3, Tempra, and Liquiprin. Acetaminophen can be repeated every four hours. The following are maximum recommended dosages: >89 pounds or adults 650 mg to 900 mg Acetaminophen can be repeated every four hours. Maximum dose not to exceed 4000 mg a day. SMOKING: If you smoke, you should stop smoking. The tar and chemicals in cigarette smoke are harmful. Smoking has been shown to cause: emphysema chronic bronchitis lung cancer mouth and throat cancer stomach and pancreas cancer premature aging defects In addition, smoking increases ear and lung infections in children of smokers. FOLLOW-UP CARE: If you have been referred to a physician for follow-up care, call the physicians office for an appointment as you were instructed or within the next two days. If you experience worsening or a significant change in your symptoms, notify the physician immediately or return to the Emergency Department at any time for re-evaluation. Forms: Smoking Cessation Education, Elevated Blood Pressure Referrals: [facility] [Provider Group] - Follow up as needed
== END 2018-12-24 14:55 | disposition home or self-care (01) ==
LOC: ER 13:59
DX: J06.9 Acute upper respiratory infection, unspecified (principal); B97.89 Other viral agents as the cause of diseases classified elsewhere; R09.81 Nasal congestion; R09.82 Postnasal drip; R68.83 Chills (without fever); M79.10 Myalgia, unspecified site; F17.210 Nicotine dependence, cigarettes, uncomplicated; Z71.6 Tobacco abuse counseling
CPT/HCPCS: 99283; J3490 ×2

== ENCOUNTER → 2019-02-14 | Outpatient (CLI) | payer MEDICAID | LOC: OD 16:50 | PROVIDERS: ATTEND Obstetrics & Gynecology | DX: O02.1 Missed abortion (principal) | CPT/HCPCS: 36415; 84702 ==

== ENCOUNTER 2019-05-27 06:56 | Emergency (ER) | payer MEDICAID ==
[2019-05-27] MEDS ORDERED: HYDROCODONE/ACETAMINOPHEN 5-325 MG TABLET PO ONE (08:46)
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
[2019-05-27 09:10] VITALS: BP 114/70
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
[2019-05-27] MEDS ORDERED: HYDROCODONE/ACETAMINOPHEN 5-325 MG (6 TAB/ER DISP) PO PRN (10:13)
== END 2019-05-27 10:28 | disposition home or self-care (01) ==
LOC: ER 06:56
DX: S09.93XA Unspecified injury of face, initial encounter (principal); R22.0 Localized swelling, mass and lump, head; M79.641 Pain in right hand; Y04.2XXA Assault by strike against or bumped into by another person, initial encounter; F17.200 Nicotine dependence, unspecified, uncomplicated
CPT/HCPCS: 70486; 99284

== ENCOUNTER 2020-05-01 05:22 | Inpatient (IN) | payer MEDICAID ==
[2020-05-01] MEDS ORDERED: RINGERS SOLUTION,LACTATED 1,000 ML IV ONE (05:30)
[2020-05-01] MEDS ORDERED: RINGERS SOLUTION,LACTATED 1,000 ML IV PRN (05:30)
[2020-05-01] MEDS ORDERED: OXYTOCIN/0.9 % SODIUM CHLORIDE 30 UNIT/500 ML RTUINJ IV PRN ×2 (05:32→23:37)
[2020-05-01] MEDS ORDERED: ACETAMINOPHEN 325 MG TABLET PO PRN (05:32)
[2020-05-01] MEDS ORDERED: MAG HYDROX/AL HYDROX/SIMETH SUSP 30 ML UDCUP PO PRN (05:32)
[2020-05-01] MEDS ORDERED: ZOLPIDEM TARTRATE 5 MG TABLET PO PRN ×2 (05:32→23:37)
[2020-05-01 06:24] LABS: ABSOLUTE LYMPHOCYTES (AUTO) 1.6 10^3/uL (0.5-4.7); ABSOLUTE MONOCYTES (AUTO) 0.4 10^3/uL (0.1-1.4); ABSOLUTE NEUT (AUTO) 3.8 10^3/uL (1.7-8.2); BASOPHILS % (AUTO) 0.2 % (0-2); EOSINOPHILS % (AUTO) 0.2 % (0-6); HEMATOCRIT 38.5 % (36.0-47.0); HEMOGLOBIN 12.4 g/dL (12.0-15.5); LYMPHOCYTES % (AUTO) 27.7 % (13-45); MEAN CORPUSCULAR HEMOGLOBIN 25.2 pg (27.0-33.4); MEAN CORPUSCULAR HGB CONC 32.1 g/dL (32.0-36.0); MEAN CORPUSCULAR VOLUME 79 fl (80-97); MONOCYTES % (AUTO) 6.8 % (3-13); PLATELET COUNT 111 10^3/uL (150-450); RED CELL DISTRIBUTION WIDTH 14.9 % (11.5-14.0); SEGMENTED NEUTROPHILS % (AUTO) 65.1 % (42-78); TOTAL CELLS COUNTED % (AUTO) 100 %; WHITE BLOOD COUNT 5.8 10^3/uL (4.0-10.5)
[2020-05-01 06:26] LABS: APPEARANCE,URINE CLEAR; BILIRUBIN,URINE NEGATIVE (NEGATIVE); COLOR,URINE STRAW; GLUCOSE, URINE NEGATIVE (NEGATIVE); KETONES,URINE NEGATIVE (NEGATIVE); LEUKOCYTE ESTERASE,URINE NEGATIVE (NEGATIVE); NITRITE,URINE NEGATIVE (NEGATIVE); PROTEIN,URINE NEGATIVE (NEGATIVE); URINE SPECIFIC GRAVITY 1.006; UROBILINOGEN,URINE NEGATIVE mg/dL (<2.0)
[2020-05-01 06:46] LABS: URINE AMPHETAMINES SCREEN NEGATIVE; URINE BARBITURATES SCREEN NEGATIVE; URINE BENZODIAZEPINES SCREEN NEGATIVE; URINE COCAINE SCREEN NEGATIVE; URINE MARIJUANA (THC) SCREEN NEGATIVE; URINE METHADONE SCREEN NEGATIVE; URINE PHENCYCLIDINE SCREEN NEGATIVE
--- NOTE | 2020-05-01 06:48 | Admission Physical ---
Datetime Report Generated by CPN: 05/01/2020 06:48 CURRENT ADMISSION Hx Assessment: d Chief Complaint: Scheduled Induction of Labor Chief Complaint Other: Here for IOL at 39.4 wks EGA d/t A2GDM on Glyburide. SHe reports good FM. NO LOF or VB She did have exposure 8 days ago to person with Covid. Tested 5 days ago herself and she was negative. SHe does endorse a cough today Indication for Induction: Maternal Diabetes Admit Impression : Term, Intrauterine ; No Active Labor; Induction of Labor Admit Plan: Admit to Unit; Initiate Labor Induction Protocol ALLERGIES Medication Allergies: No Medication Allergies: No Known Allergies (05/01/2020) Latex: No Latex Allergies OBSTETRICAL HISTORY EDC: 05/04/2020 00:00 : 3 Para: 0 Gestational Diabetes: Yes Rh Sensitization: No Incompetent Cervix: No FLORINDA: No Infertility: No ART Treatment: No Uterine Anomaly: No IUGR: No Hx Previous C/S: No Macrosomia: No Hx Loss/Stillborn: No PIH: No Hx : No Placenta Previa/Abruption: No Depression/PP Depression: No PTL/PROM: No Post Hemorrhage: No Obstetrical History Comments: G1 14 weeks 02/2019 G2 06/2018 SAB 10 weeks G3- current, GDM on glyburide SEE RECORDS Alcohol: No Marijuana : No Cocaine: No Other Illicit Drugs: No Cigarettes: Former Smoker. [id number] MEDICAL HISTORY Diabetes: Yes Diabetes Type: Gestational Diabetes Blood Transfusion: No Pulmonary Disease (Asthma, TB): No Breast Disease: No Hypertension: No Nurse Practitioner Manager Surgery: No Heart Disease: No Hosp/Surgery: No Autoimmune Disorder: No Anesthetic Complications: No Kidney Disease: No Abnormal Pap Smear: No Neuro/Epilepsy: No Psychiatric Disorders: No Other Medical Diseases: No Hepatitis/Liver Disease: No Significant Family History: No Varicosities/Phlebitis: No Trauma/Violence : No Thyroid Dysfunction: No INFECTIOUS HISTORY Gonorrhea: No Genital Herpes: No Chlamydia: Yes Tuberculosis: No Syphilis: No Hepatitis: No HIV/AIDS Exposure: No Rash or Viral Illness: No HPV: No Infectious History Comments: chlamydia 02/21/2018 PHYSICAL EXAM General: Normal HEENT: Normal Neurologic: Normal Thyroid: Normal Heart: Normal Lungs: Normal Breast: Normal Back: Normal Abdomen: Normal Genitourinary Exam: Normal Extremities: Normal DTRs: Normal Pelvic Type: Adequate Vital Signs: Reviewed; Within Normal Limits VAGINAL EXAM Dilatation: 1 Effacement: 50 Station: -3 Contraction Comments: no regular MEMBRANES Pooling: Negative Membranes: Intact FETUS A EGA: 39.4 Monitoring: External US FHR- Baseline: 135 Variability: Moderate 6-25bpm Accelerations: 15X15 Decelerations: None FHR Category: Category I Presentation: Vertex Admit Comment: at 39.4 wks EGA for IOL d/t A2GDM on glyburide -Admit to LDR -NPO and IVFs: LR at 125 cc/hr after 1 liter bolus LR -CEFM and toco -GBS negative -Accuchecks Q 4 and then Q 2 in labor.HYpoglycemic protocol PRN -Cervix /50 and firm. Cytotec 25 mcg now and then will re eval for Pit/arom -Anticipate PLANS FOR LABOR AND DELIVERY Labor and Delivery: None Pain Management: Medications Feeding Preference: Breast Benefit of Breast Feed Discussed: Yes Circumcision: Yes INFORMED CONSENT Signature: with User ID: [email or web address] : with User ID: [email or web address]
[2020-05-01] MEDS ORDERED: MISOPROSTOL 0.1 MG TABLET PV ONE (07:10)
[2020-05-01] MEDS ORDERED: OXYTOCIN/0.9 % SODIUM CHLORIDE 30 UNIT/500 ML RTUINJ ONE (10:42)
[2020-05-01] MEDS ORDERED: MISOPROSTOL 0.2 MG TABLET ONE (10:42)
[2020-05-01] MEDS ORDERED: OXYTOCIN 10 UNIT/ML VIAL ONE (10:42)
[2020-05-01] MEDS ORDERED: LIDOCAINE 1% INJ-PF (10 MG/ML) 30 ML SDV ONE (10:42)
[2020-05-01] MEDS ORDERED: PROMETHAZINE HCL INJ 25 MG/1 ML VIAL ONE (17:35)
[2020-05-01] MEDS ORDERED: NALBUPHINE HCL INJ 10 MG/1 ML AMPULE ONE (17:35)
[2020-05-01] MEDS ORDERED: LABETALOL HCL INJ 20 MG/4 ML DISP.SYRIN IV ONE ×3 (21:36→21:58)
[2020-05-01] MEDS ORDERED: PSEUDOEPHEDRINE HCL 30 MG TABLET PO PRN (23:37)
[2020-05-01] MEDS ORDERED: BENZOCAINE/MENTHOL AEROSOL SPRAY 56 ML TOP PRN (23:37)
[2020-05-01] MEDS ORDERED: PROMETHAZINE HCL 25 MG TABLET PO PRN (23:37)
[2020-05-01] MEDS ORDERED: MEASLES,MUMPS&RUBELLA VACC/PF 0.5 ML VIAL SUBCUT PRN (23:37)
[2020-05-01] MEDS ORDERED: DIPH/PERTUSS(ACELL)/TETANUS VAC/PF 0.5 ML SYR (>=10YO) IM PRN (23:37)
[2020-05-01] MEDS ORDERED: ACETAMINOPHEN 650 MG SUPP.RECT PR PRN (23:37)
[2020-05-01] MEDS ORDERED: ACETAMINOPHEN WITH CODEINE #3 TABLET PO PRN (23:37)
[2020-05-01] MEDS ORDERED: PROMETHAZINE HCL INJ 25 MG/1 ML VIAL IV PRN (23:37)
[2020-05-01] MEDS ORDERED: GLYCERIN/WITCH HAZEL LEAF 1 EACH MED..WIPE TP PRN (23:37)
[2020-05-01] MEDS ORDERED: DIPHENHYDRAMINE HCL 25 MG CAPSULE PO PRN (23:37)
[2020-05-01] MEDS ORDERED: NA PHOS,M-B/NA PHOS,DI-BA (ADULT) 133 ML ENEMA PR PRN (23:37)
[2020-05-01] MEDS ORDERED: DIBUCAINE 1% OINTMENT 28 GM TP PRN (23:37)
[2020-05-01] MEDS ORDERED: PROMETHAZINE HCL 25 MG SUPP.RECT PR PRN (23:37)
[2020-05-01] MEDS ORDERED: MAGNESIUM HYDROXIDE SUSP 30 ML UDCUP PO PRN (23:37)
[2020-05-01] MEDS ORDERED: FAMOTIDINE 20 MG TABLET PO ONE (23:45)
--- NOTE | 2020-05-02 01:21 | Birth Certificate Data ---
Cert Data Datetime Report Generated by CPN: 05/02/2020 01:21 CERTIFICATE DATA Delivery Provider: Victor Hugo Dumont MD (05/01/2020 05:07:Victor Hugo Dumont MD (WEB)) 47a. Care: Yes (05/01/2020 05:07:Shahida Roca RN) 47b. Date of First Visit: 09/21/2019 00:00 (05/01/2020 05:07:Shahida Roca RN) 47c. Date of Last Visit: 04/30/2020 00:00 (05/01/2020 05:07:Shahida Roca RN) 47d. Number of Visits: 20 (05/01/2020 05:07:Swati De RN) 48a. Number of Prev Live Births: 0 (05/01/2020 05:07:Swati De RN) 48b. Now Livin (05/01/2020 05:07:Swati De RN) 48c. Live Births Now : 0 (05/01/2020 05:07:QS system process) 48e. Losses: 2 (05/01/2020 05:07:Swati De RN) 48f. Date of Last Preg Loss: 02/13/2019 00:00 (05/01/2020 05:07:Swati De RN) RISK FACTORS IN THIS 49a. Diabetes: Yes (05/01/2020 05:07:Shahida Roca RN) Type of Diabetes: Gestational Diabetes (05/01/2020 05:07:Shahida Roca RN) 49b. Hypertension: No (05/01/2020 05:07:Shahida Roca RN) 49c. Previous Births: 0 (05/01/2020 05:07:Swati De RN) 49d. Stillborns: No (05/01/2020 05:07:Shahida Roca RN) 49d. IUGR: No (05/01/2020 05:07:Shahida Roca RN) 49e. Infertility Treatment: No (05/01/2020 05:07:Shahida Roca RN) 49f. Previous Cesareans: 0 (05/01/2020 05:07:wSati De RN) Mother's Height 50b. Height Inches: 67 (05/01/2020 10:32:QS system process) Mother's Weight 51a. Pre- Weight (lbs): 257 (05/01/2020 05:07:Swati De RN) 51b. Weight at Delivery (lbs): 301 (05/01/2020 10:32:QS system process) 52. Dt Last Normal Menses Began: 07/29/2019 00:00 (05/01/2020 05:07:Swati De RN) Infections Present/Treated 53a. Gonorrhea: No (05/01/2020 05:07:Shahida Roca RN) Results this Hospital Visit : Negative (05/01/2020 05:07:Shahida Roca RN) 53b. Syphilis: No (05/01/2020 05:07:Shahida Roca RN) Results this Hospital Visit: NONREACTIVE (05/01/2020 05:49:QS system process) 53c. Chlamydia: Yes (05/01/2020 05:07:Shahida Roca RN) Results this Hospital Visit: Negative (05/01/2020 05:07:Shahida Roca RN) 53d. Hepatitis B: No (05/01/2020 05:07:Shahida Roca RN) Results this Hospital Visit: Negative (05/01/2020 05:07:Shahida Roca RN) 53e. Hepatitis C: Negative (05/01/2020 05:07:Shahida Roca RN) 53h. Mother Tested for HBsAG: Yes (05/01/2020 05:07:Shahida Roca RN) 53i. Date Tested: 10/10/2019 00:00 (05/01/2020 05:07:Shahida Roca RN) 53j. Test Result: Negative (05/01/2020 05:07:Shahida Roca RN) Obstetric Procedures 54a, b, c. Obstetric Procedures: Ultrasound; NST (05/01/2020 05:07:Swati De RN) Cigarette Smoking Cigarette Smoking: Former Smoker. [id number] (05/01/2020 05:07:Shahida Roca RN) 55a. 3 Months Before Preg - Ci-3 (05/01/2020 05:07:Shahida Roca RN) 55b. 1st Trimester of Preg- Ci-3 (05/01/2020 05:07:Shahida Roca RN) 55c. 2nd Trimester of Preg- Ci (05/01/2020 05:07:Shahida Roca RN) 55d. 3rd Trimester of Preg- Ci (05/01/2020 05:07:Shahida Roca RN) Onset of Labor 56a. PROM >12 Hrs: 7.60 (05/01/2020 05:07:QS system process) 56b. Precipitous Labor <3 Hrs: 5 (05/01/2020 05:07:QS system process) 56c. Prolonged Labor > 20 Hrs: 5 (05/01/2020 05:07:QS system process) 57a. Induction of Labor: Induction (05/01/2020 05:07:Kylie Samaniego RN) 57c. Non-Vertex Presentation A: Vertex (05/01/2020 05:07:Kylie Samaniego RN) 57d. Steroids - Lung Mat: None (05/01/2020 05:07:Kylie Samaniego RN) 57d. Steroids - Lung Mat: Not Applicable (05/01/2020 05:07:Kylie Samaniego RN) 57g. Moderate/Heavy Meconium: Clear (05/01/2020 15:49:Swati De RN) 57h. Intolerance of Labor: N/A (05/01/2020 05:07:Kylie Samaniego RN) : N/A (05/01/2020 05:07:Kylie Samaniego RN) 57i. Epidural/Spinal Anesthesia: None (05/01/2020 05:07:Kylie Samaniego RN) Method of Delivery 58a. Forceps - Unsuccessful A: N/A (05/01/2020 05:07:Kylie Samaniego RN) 58b. Vacuum - Unsuccessful A: N/A (05/01/2020 05:07:Kylie Samaniego RN) 58c. Presentation at 58c. Presentation at - A : Vertex (05/01/2020 05:07:Kylie Samaniego RN) 58c. Presentation at - A : N/A (05/01/2020 05:07:Kylie Samaniego RN) 58c. Presentation at - A : Cephalic (05/01/2020 19:35:Kylie Samaniego RN) Final Route and Method of Del 58d. Baby A Route/Delivery: Vaginal (05/01/2020 23:25:Kylie Samaniego RN) 58e. Trial of Labor Attempted: No (05/01/2020 05:07:Kylie Samaniego RN) 58e. Trial of Labor Attempted A: N/A (05/01/2020 05:07:Kylie Samaniego RN) 58e. Trial of Labor Attempted B: N/A (05/01/2020 05:07:Kylie Samaniego RN) Maternal Morbidity 59b. 3rd or 4th Degree Lacs: Vaginal (05/01/2020 05:07:Victor Hugo Dumont MD ([facility])) Birthweight Baby A: 3190 (05/01/2020 05:07:Sil Ozuna RN) 60a. Pounds : 7 (05/01/2020 05:07:QS system process) 60b. Ounces: 1 (05/01/2020 05:07:QS system process) 61. GA at Delivery Baby A: 39.4 (05/01/2020 05:07:Kylie Samaniego RN) : Full Term- 39- 40.6 Weeks (05/01/2020 05:07:QS system process) 62a. 5 Minute Baby A: 9 (05/01/2020 05:07:QS system process)
--- NOTE | 2020-05-02 01:21 | Delivery Summary ---
Del Sum A-C Datetime Report Generated by CPN: 05/02/2020 01:21 DELIVERY PERSONNEL DELIVERY PERSONNEL: [id number] Delivery Doctor:: Victor Hugo Dumont MD Labor and Delivery Nurse:: Kylie Samaniego RN Nursery Nurse:: Sil Ozuna RN Planting Supervisor/MANUSCRIPT EDITOR: Radha Britt, ST MATERNAL INFORMATION Delivery Anesthesia: None Medications After Delivery: Pitocin 30 Units in 500ml NS/D5W Delivery QBL: 100 Maternal Complications: Other Complication Details: Covid Positive LABOR SUMMARY EDC: 05/04/2020 00:00 No. Babies in Womb: 1 Attempted: No Labor Anesthesia: None LABOR INFORMATION Reason for Induction: Maternal Diabetes; Oligohydramnios Onset of Labor: 05/01/2020 18:05 Complete Dilatation: 05/01/2020 22:48 Oxytocin: Induction Group B Beta Strep: negative Steroids Given: None Reason Steroids Not Administered: Not Applicable MEMBRANES Membranes Rupture Method: Artificial Rupture of Membranes: 05/01/2020 15:49 Length of Rupture (hr): 7.60 Amniotic Fluid Color: Clear Amniotic Fluid Amount: Scant Amniotic Fluid Odor: Normal STAGES OF LABOR Stage 1 hr: 4 Stage 1 min: 43 Stage 2 hr: 0 Stage 2 min: 37 Stage 3 hr: 0 Stage 3 min: 3 Total Time in Labor hr: 5 Total Time in Labor min: 23 VAGINAL DELIVERY Episiotomy: None Laceration #1: Vaginal Laceration Extension #1: N/A Laceration Repair: Yes Laceration Repair Note: repaired with 2-0 vicryl Sponge Count Correct: Yes Sharps Count Correct: Yes CSECTION DELIVERY Primary Indication: N/A Secondary Indication: N/A CSection Incidence: N/A Labor: N/A Elective: N/A CSection Incision: N/A BABY A INFORMATION Delivery Date/Time: 05/01/2020 23:25 Method of Delivery: Vaginal Nurse Controlled Delivery: No Born in Route : No : N/A Forceps: N/A Vacuum Extraction: N/A Shoulder Dystocia : No PRESENTATION/POSITION BABY A Presentation: Cephalic Cephalic Presentation: Vertex Vertex Position: Left Occipital Anterior Breech Presentation: N/A PLACENTA INFORMATION BABY A Placenta Delivery Time : 05/01/2020 23:28 Placenta Method of Delivery: Spontaneous Placenta Status: Delivered SCORES BABY A Heart Rate 1 min: >100 bpm Resp Effort 1 min: Good Cry Reflex Irritability 1 min: Cough or Sneeze or Pulls Away Muscle Tone 1 min: Active Motion Color 1 min: Blue/Pale Resuscitation Effort 1 min: Tactile Stimulation SCORE 1 MIN: 8 Heart Rate 5 min: >100 bpm Resp Effort 5 min: Good Cry Reflex Irritability 5 min: Cough or Sneeze or Pulls Away Muscle Tone 5 min: Active Motion Color 5 min: Body [place], Extremities Blue SCORE 5 MIN: 9 INFANT INFORMATION BABY A Gestational Age at Delivery: 39.4 Gestational Status: Full Term- 39- 40.6 Weeks Outcome : Liveborn Condition : Stable Infant Sex: Male IDENTIFICATION BABY A Infant Verification Date/Time: 05/02/2020 01:05 ID Band Number: [id number] Mother's Name Verified: Yes Infant RN Verifying : D Bellavance RN/C Gentilin RN WEIGHT/LENGTH BABY A Infant Birthweight (gm): 3190 Infant Weight (lb): 7 Weight (oz): 1 Length (in): 20.00 Length (cm): 50.80 CORD INFORMATION BABY A No. Cord Vessels: 3 Nuchal Cord : N/A Cord Blood Taken: N/A Suction: None ASSESSMENT BABY A Infant Complications: None Physical Findings at Delivery: Within Normal Limits Infant Respirations: Appears Normal Skin to Skin: Yes Transferred To: Remains with Mother BABY B INFORMATION : N/A SIGNATURES Signature: with User ID: [email or web address]
[2020-05-02] MEDS ORDERED: IBUPROFEN 800 MG TABLET ONE ×3 (06:20→21:30)
[2020-05-02 07:20] LABS: HEMATOCRIT 33.6 % (36.0-47.0); MEAN CORPUSCULAR HEMOGLOBIN 25.7 pg (27.0-33.4); MEAN CORPUSCULAR HGB CONC 32.6 g/dL (32.0-36.0); MEAN CORPUSCULAR VOLUME 79 fl (80-97); RED BLOOD COUNT 4.27 10^6/uL (3.72-5.28); RED CELL DISTRIBUTION WIDTH 14.8 % (11.5-14.0); WHITE BLOOD COUNT 10.8 10^3/uL (4.0-10.5)
[2020-05-02] MEDS ORDERED: PRENATAL VITAMIN W DHA CAPSULE PO ONE (09:11)
[2020-05-02] MEDS ORDERED: FERROUS SULFATE 325 MG TABLET PO ONE ×2 (09:12→16:47)
[2020-05-02] MEDS ORDERED: SENNOSIDES/DOCUSATE 8.6-50 MG 1 EACH TABLET ONE (09:12)
[2020-05-02] MEDS ORDERED: FAMOTIDINE 20 MG TABLET ONE ×2 (09:12→21:30)
[2020-05-02] MEDS ORDERED: DOCUSATE SODIUM 100 MG CAPSULE ONE ×2 (09:12→16:47)
[2020-05-02] MEDS ORDERED: BENZOCAINE/MENTHOL AEROSOL SPRAY 56 ML ONE (09:13)
[2020-05-02] MEDS: IBUPROFEN 800 MG TABLET PO SCH ×3 (09:30→21:31)
[2020-05-02] MEDS: PRENATAL VITAMIN W DHA CAPSULE PO SCH (09:32)
[2020-05-02] MEDS: FERROUS SULFATE 325 MG TABLET PO SCH ×2 (09:33→17:14)
[2020-05-02] MEDS: SENNOSIDES/DOCUSATE 8.6-50 MG 1 EACH TABLET PO SCH (09:33)
[2020-05-02] MEDS: FAMOTIDINE 20 MG TABLET PO SCH ×2 (09:33→21:31)
[2020-05-02] MEDS: DOCUSATE SODIUM 100 MG CAPSULE PO SCH ×2 (09:33→17:14)
--- NOTE | 2020-05-02 16:05 | PDOC PROGRESS REPORT ---
Subjective-OB Progress Note for:: 05/02/20 Subjective: reports bleeding slowing, pain controlled with current meds. denies needs Physical Exam (OB) Vital Signs: Temp Pulse Resp BP Pulse Ox 98.7 F 96 16 148/77 H 05/02/20 09:58 05/02/20 08:30 05/02/20 08:30 05/02/20 08:30 Intake & Output 05/01/20 05/02/20 05/03/20 06:59 06:59 06:59 Weight 136.9 kg - Maternal Morbidity 59. Maternal Morbidity (serious complications experinced by the mother associated with labor and delivery: None of the above - Abdomen Description: Soft Hernia Present: No Fundal Description: Firm, Midline Fundal Height: u/u - u/2 - Abdominal Distension: No distension Tenderness: Nontender - Extremities Lower extremities: Yung's sign - neg Calf: Normal, Nontender Objective-Diagnostic Laboratory: 05/02/20 06:49 05/02/20 06:49 WBC 10.8 H RBC 4.27 Hgb 11.0 L Hct 33.6 L MCV 79 L MCH 25.7 L MCHC 32.6 RDW 14.8 H Plt Count Assessment and Plan(PN) - Assessment and Plan (1) COVID-19 virus detected Is this a current diagnosis for this admission?: Yes (2) Normal vaginal delivery Is this a current diagnosis for this admission?: Yes (3) GDM, class A2 Is this a current diagnosis for this admission?: Yes - Time Spent with Patient Time with patient: Less than 15 minutes - Disposition Anticipated Discharge Disposition: Home, Self Care Anticipated Discharge Timeframe: within 24 hours
[2020-05-03] MEDS ORDERED: IBUPROFEN 800 MG TABLET ONE (06:20)
[2020-05-03] MEDS: IBUPROFEN 800 MG TABLET PO SCH (06:21)
[2020-05-03] MEDS: FERROUS SULFATE 325 MG TABLET PO SCH (11:53)
[2020-05-03] MEDS: SENNOSIDES/DOCUSATE 8.6-50 MG 1 EACH TABLET PO SCH (11:53)
[2020-05-03] MEDS: PRENATAL VITAMIN W DHA CAPSULE PO SCH (11:54)
[2020-05-03] MEDS: DOCUSATE SODIUM 100 MG CAPSULE PO SCH (11:54)
[2020-05-03] MEDS: FAMOTIDINE 20 MG TABLET PO SCH (11:54)
[2020-05-03 12:46] VITALS: BP 142/91
--- NOTE | 2020-05-03 12:57 | PDOC DISCHARGE SUMMARY ---
Impression - Admit/DC Date/PCP Admission Date/Primary Care Provider: 05/01/20 05:22 RADHA ARIZA MD Discharge Date: 05/03/20 - Discharge Diagnosis (1) COVID-19 virus detected Is this a current diagnosis for this admission?: Yes (2) Normal vaginal delivery Is this a current diagnosis for this admission?: Yes (3) GDM, class A2 Is this a current diagnosis for this admission?: Yes - Additional Information Discharge Diet: Regular Discharge Activity: Balance Activity w/Rest, Pelvic Rest Referrals: RADHA ARIZA MD [Primary Care Provider] - Prescriptions: Ibuprofen [Motrin 800 mg Tablet] 800 mg PO Q8HP PRN #60 tablet PRN Reason: Home Medications: Ibuprofen [Motrin 800 mg Tablet] 800 mg PO Q8HP PRN #60 tablet 05/03/20 Vit/Dha [ Multi + Dha Capsule] 1 cap PO DAILY capsule 05/03/20 Hospital Course 59. Maternal Morbidity (serious complications experinced by the mother associated with labor and delivery: None of the above Results Laboratory Results: WBC 10.8 10^3/uL (4.0-10.5) H 05/02/20 06:49 RBC 4.27 10^6/uL (3.72-5.28) 05/02/20 06:49 Hgb 11.0 g/dL (12.0-15.5) L 05/02/20 06:49 Hct 33.6 % (36.0-47.0) L 05/02/20 06:49 MCV 79 fl (80-97) L 05/02/20 06:49 MCH 25.7 pg (27.0-33.4) L 05/02/20 06:49 MCHC 32.6 g/dL (32.0-36.0) 05/02/20 06:49 RDW 14.8 % (11.5-14.0) H 05/02/20 06:49 Plt Count 10^3/uL (150-450) 05/02/20 06:49 Lymph % (Auto) 27.7 % (13-45) 05/01/20 05:49 [place] % (Auto) 6.8 % (3-13) 05/01/20 05:49 Eos % (Auto) 0.2 % (0-6) 05/01/20 05:49 Baso % (Auto) 0.2 % (0-2) 05/01/20 05:49 Absolute Neuts (auto) 3.8 10^3/uL (1.7-8.2) 05/01/20 05:49 Absolute Lymphs (auto) 1.6 10^3/uL (0.5-4.7) 05/01/20 05:49 Absolute Monos (auto) 0.4 10^3/uL (0.1-1.4) 05/01/20 05:49 Absolute Eos (auto) 0.0 10^3/uL (0.0-0.6) 05/01/20 05:49 Absolute Basos (auto) 0.0 10^3/uL (0.0-0.2) 05/01/20 05:49 Seg Neutrophils % 65.1 % (42-78) 05/01/20 05:49 Urine Color STRAW 05/01/20 05:30 Urine Appearance CLEAR 05/01/20 05:30 Urine pH 6.0 (5.0-9.0) 05/01/20 05:30 Ur Specific [place] 1.006 05/01/20 05:30 Urine Protein NEGATIVE mg/dL (NEGATIVE) 05/01/20 05:30 Urine Glucose (UA) NEGATIVE mg/dL (NEGATIVE) 05/01/20 05:30 Urine Ketones NEGATIVE mg/dL (NEGATIVE) 05/01/20 05:30 Urine Blood NEGATIVE (NEGATIVE) 05/01/20 05:30 Urine Nitrite NEGATIVE (NEGATIVE) 05/01/20 05:30 Urine Bilirubin NEGATIVE (NEGATIVE) 05/01/20 05:30 Urine Urobilinogen NEGATIVE mg/dL (<2.0) 05/01/20 05:30 Ur Leukocyte Esterase NEGATIVE (NEGATIVE) 05/01/20 05:30 Urine Ascorbic Acid NEGATIVE (NEGATIVE) 05/01/20 05:30 Urine Opiates Screen NEGATIVE 05/01/20 05:30 Urine Methadone Screen NEGATIVE 05/01/20 05:30 Ur Barbiturates Screen NEGATIVE 05/01/20 05:30 Ur Phencyclidine Scrn NEGATIVE 05/01/20 05:30 Ur Amphetamines Screen NEGATIVE 05/01/20 05:30 U Benzodiazepines Scrn NEGATIVE 05/01/20 05:30 Urine Cocaine Screen NEGATIVE 05/01/20 05:30 U Marijuana (THC) Screen NEGATIVE 05/01/20 05:30 RPR NONREACTIVE (NONREACTIVE) 05/01/20 05:49 Influenza A (RT-PCR) NEGATIVE (NEGATIVE) 05/01/20 07:42 Influenza B (RT-PCR) NEGATIVE (NEGATIVE) 05/01/20 07:42 RSV (RT-PCR) NEGATIVE (NEGATIVE) 05/01/20 07:42 SARS-CoV-2 Rap RNA(RT-PCR) POSITIVE (NEGATIVE) H 05/01/20 07:42 Blood Type B POSITIVE 05/01/20 05:49 Antibody Screen NEGATIVE 05/01/20 05:49 Plan Plan of Treatment: follow up in 4 weeks at [facility] for post check
== END 2020-05-03 17:58 | disposition home or self-care (01) | DRG 805 ==
LOC: LR 05:22
PROVIDERS: ADMIT Obstetrics & Gynecology; ATTEND Obstetrics & Gynecology
PROC: 10E0XZZ Delivery of Products of Conception, External Approach (ICD-10-PCS; principal; 2020-05-01)
PROC: 0HQ9XZZ Repair Perineum Skin, External Approach (ICD-10-PCS; 2020-05-01)
PROC: 3E033VJ Introduction of Other Hormone into Peripheral Vein, Percutaneous Approach (ICD-10-PCS; 2020-05-01)
PROC: 10907ZC Drainage of Amniotic Fluid, Therapeutic from Products of Conception, Via Natural or Artificial Opening (ICD-10-PCS; 2020-05-01)
DX: O98.52 Other viral diseases complicating childbirth (principal); U07.1 COVID-19; Z37.0 Single live birth; O41.03X0 Oligohydramnios, third trimester, not applicable or unspecified; O70.0 First degree perineal laceration during delivery; O24.425 Gestational diabetes mellitus in childbirth, controlled by oral hypoglycemic drugs; Z28.21 Immunization not carried out because of patient refusal; Z87.891 Personal history of nicotine dependence; Z3A.39 39 weeks gestation of pregnancy
CPT/HCPCS: 36415; 80307; 81005; 85025; 85027; 86592; 86850; 86900; 86901; 0241U; C9803; J2300; J2550; J2590; J3490